=== PATIENT | male | born 1975 | race Caucasian/White ===

== ENCOUNTER 2020-06-22 10:17 | Outpatient (CLI) | payer BC, SELFPAY ==
--- NOTE | 2020-06-22 10:29 | EST_ITS ---
Patient Info Name: Los Bishop Age: 45 years : 1975 Gender: Male Ht: 71 in Wt: 290 lbs BSA: 2.62 m2 Exam Date: 06/22/2020 10:45 AM Exam Location: [facility] Pulmonary Patient Status: Outpatient Admit Date: 06/22/2020 Staff Ordering Physician: Julianna Peres MD Policy Writer Typist: Connor Bishop RDCS, RT Attending Provider: CARMEN JOHNSON DO Referring Physician: Larisa EDGE; Exercise Technologist: Gisel Leon RDCS Exercise Physician: Carmen Johnson DO Exam Type: CA stress echo Study Info Indications R00.2 - Palpitations Treadmill exercise stress echocardiogram is performed. Summary 1. 1. Inconclusive Jerad exercise stress test for ischemic ST changes by ECG criteria due to development of LBBB during exercise. 2. 2. Reduced functional capacity, achieving 8 METs of workload. 3. 3. Change of QRS complex to Left bundle branch block during exercise. 4. 4. Appropriate HR response to exercise. 5. 5. Appropriate HR recovery at 1 minute post exercise. 6. 6. Baseline hypertension. 7. 7. Inconclusive stress echocardiogram for ischemia by wall motion analysis due to suboptimal study and timing out during acquisition. But no obvious segmental wall motion abnormality in apical images. 8. 8. Patient informed of the above results. Stress Echo Findings Left Ventricle Suboptimal as parasternal images not obtained as timed out. Apical images did not reveal any obvious segmental wall motion abnormality. Left Ventricle Normal LV systolic function, no wall motion abnormality. Protocol: Jerad Stress ECG Details Stage: REST Duration (min): 4 min : 32 sec Speed (mph): 0.0 Grade (%): 0 HR (bpm): 70 SBP (mmHg): 154 DBP (mmHg): 69 METS: --- Stage: REST Duration (min): 18 min : 9 sec Speed (mph): 0.0 Grade (%): 0 HR (bpm): 82 SBP (mmHg): 154 DBP (mmHg): 69 METS: --- Stage: STAGE 1 Duration (min): 1 min : 0 sec Speed (mph): 1.7 Grade (%): 10 HR (bpm): 110 SBP (mmHg): 154 DBP (mmHg): 69 METS: --- Stage: STAGE 1 Duration (min): 2 min : 0 sec Speed (mph): 1.7 Grade (%): 10 HR (bpm): 118 SBP (mmHg): 154 DBP (mmHg): 69 METS: --- Stage: STAGE 1 Duration (min): 3 min : 0 sec Speed (mph): 1.7 Grade (%): 10 HR (bpm): 120 SBP (mmHg): 179 DBP (mmHg): 53 METS: --- Stage: STAGE 2 Duration (min): 1 min : 0 sec Speed (mph): 2.5 Grade (%): 12 HR (bpm): 135 SBP (mmHg): 179 DBP (mmHg): 53 METS: --- Stage: STAGE 2 Duration (min): 2 min : 0 sec Speed (mph): 2.5 Grade (%): 12 HR (bpm): 123 SBP (mmHg): 192 DBP (mmHg): 57 METS: --- Stage: STAGE 2 Duration (min): 3 min : 0 sec Speed (mph): 2.5 Grade (%): 12 HR (bpm): 143 SBP (mmHg): 192 DBP (mmHg): 57 METS: --- Stage: STAGE 3 Duration (min): 0 min : 42 sec Speed (mph): 0.0 Grade (%): 0 HR (bpm): 149 SBP (mmHg): 192 DBP (mmHg): 57 METS: --- Stage: RECOVERY Duration (min): 0 min :
--- NOTE | 2020-06-27 11:36 | WPDHOLTEREM ---
Holter/Event Monitor Holter/Event Monitor Date of procedure: 06/22/20 Procedure Type: 24 hour holter monitor Indications: Palpitations Conclusion: 1. 24 hour holter monitor on 06/22/20. 2. Underlying rhythm is sinus rhythm. HR range 45-148 bpm; average HR 72 bpm. 3. There are 4 premature supraventricular complexes and 1 supraventricular triplet. No supraventricular tachycardia. 4. There are 4 premature ventricular complexes. No ventricular tachycardia. 5. There is a change in QRS complex from narrow complex to LBBB morphology at HR of 146 bpm and it returned to narrow complex. 6. Patient reports symptoms of lightheadedness, cough, heart flutters which demonstrate sinus rhythm, HR range 82-145 bpm.
== END 2020-06-22 10:18 | disposition home or self-care (01) ==
LOC: ANHCARD 10:18
PROVIDERS: PCP Family Medicine; Visit Provider Family Medicine
DX: R00.2 Palpitations (principal); R55 Syncope and collapse; R94.39 Abnormal result of other cardiovascular function study
CPT/HCPCS: 93225; 93226; 93351

== ENCOUNTER 2020-08-04 08:35 | Outpatient (CLI) | payer BC, SELFPAY ==
--- NOTE | 2020-08-18 13:09 | WPDHOMESLEEP ---
Sleep Study - Home Unattended Date of Study: 08/04/20 Ordering Provider: Khanh Peres MD Interpreting Provider: Charo Shannon MD Home Sleep Study Type: Apnea Link Air Height: 1.8 m Weight: 133.81 kg Body Mass Index: 41.1 Neck Circumference (inches): 18.5 [place]: 11 Reason for Sleep Study palpitations, left bundle branch block possibly due to sleep apnea Sleep History Los Bishop is a 45-year-old man with a history of palpitations in 2019, with a workup including stress echo and Holter monitor showing a left bundle branch block with a concern for possible sleep apnea. He wakes up at night with a severely dry mouth. He was diagnosed with Chiari malformation in 1997. He has not had surgery. He frequently snores and occasionally it is loud enough so others complain about it. He occasionally awakens at night with heartburn, belching or coughing. He does not awaken from sleep feeling short of breath. He does not have trouble sleep with a cold, does not gasp for breath at night, does not have breathing problems at night reported to me by others. He does not sweat excessively at night. He does not notice his heart pounding or beating irregularly at night. He occasionally falls asleep during the day, never involuntarily and rarely while driving. He does not fall asleep while exerting physical effort. He does not have loss of muscle tone was strong emotion. He rarely has daytime difficulties due to excessive sleepiness. He does not feel paralyzed on waking or falling asleep. He occasionally has vivid dreamlike scenes upon awakening or falling asleep. He does not feel afraid to go to sleep. He occasionally has nightmares, occasionally remembers his dreams, occasionally has racing thoughts. He rarely feels sad or depressed. He occasionally has anxiety. He rarely has muscular tension. He occasionally notices parts of his body jerking. He does not kick at night, does not have crawling or aching feelings in his legs, does not have leg pain at night and does not have morning jaw pain. He does not grind his teeth during sleep. He rarely is bothered by pain during the day. He never is awakened by pain at night. He rarely wakes up feeling stiff in the morning with sore achy muscles or pain in the neck and spine. He has fatigue, memory problems and concentration difficulties. He has palpitations. On occasion he awakens feeling refreshed. He never has a morning headache. Normal bedtime is midnight falling asleep within a few minutes typically waking 2 or 3 times at night to urinate, take a drink due to extremely dry mouth. Within a few minutes he is able to return to sleep. He wakes in the morning at 6:30 a.m.. On the weekends he also goes to bed at midnight and wakes at 8:30 a.m.. He estimates 6-7 hours of sleep at night. He occasionally takes a nap. A short nap is not refreshing but a longer nap can be refreshing. He is usually drowsy in the morning for 1 hour or longer. Habits: Never smoked tobacco. Caffeine 2 cups a day. Alcohol 1 per day. No recreational drugs. [facility] Past Medical History Medical History (Updated 08/18/20 @ 13:20 by Charo Shannon MD) Chiari malformation Essential hypertension Gastro-esophageal reflux disease without esophagitis LBBB (left bundle branch block) Mixed hyperlipidemia Surgical History Surgical History (Updated 08/18/20 @ 13:17 by Charo Shannon MD) History of tonsillectomy 1982 History of umbilical hernia repair 1996 Social History Social History Smoking status: Never smoker Alcohol intake: current Medications Home Medications Medication Instructions Recorded Confirmed Type aspirin 81 mg tablet,delayed 81 mg PO DAILY 05/06/19 07/25/20 History release triamcinolone acetonide 0.1 % 1 applic TOPICAL TID #453.6 gm 10/13/19 07/25/20 Rx topical cream atenolol 50 mg tablet 25 mg PO DAILY #90 ta
[2020-08-18 13:23] VITALS: BMI 41.1
== END 2020-08-04 08:36 | disposition home or self-care (01) ==
LOC: ANHCSM 08:35
PROVIDERS: PCP Family Medicine; Visit Provider Family Medicine
DX: G47.33 Obstructive sleep apnea (adult) (pediatric) (principal)
CPT/HCPCS: 95806

== ENCOUNTER → 2020-09-20 01:57 | Outpatient (CLI) | payer BC, SELFPAY ==
[2020-09-20 17:07] LABS: SARS-CoV-2 RNA PCR Negative
== END ==
PROVIDERS: PCP Family Medicine; Visit Provider Internal Medicine Critical Care Medicine
DX: R68.89 Other general symptoms and signs (principal); Z20.822 Contact with and (suspected) exposure to COVID-19
CPT/HCPCS: C9803; U0003; U0005

== ENCOUNTER 2020-09-22 09:28 | Outpatient (CLI) | payer BC, SELFPAY ==
--- NOTE | 2020-10-09 13:25 | WPDSLEEPSTUD ---
Sleep Study Date of Study: 09/22/20 Ordering Provider: Khanh Peres MD Interpreting Physician: Charo Shannon MD Sleep Study Type: CPAP Titration Height: 1.8 m Weight: 131.542 kg Body Mass Index: 40.4 Neck Circumference (inches): 18 [place]: 7 Reason for Sleep Study Home sleep test on 08/04/2020 with severe obstructive sleep apnea AHI 45.4, desaturation to 82%, 61% obstructive events, 39% central and mixed events, here for CPAP titration. Sleep History Los Bishop is a 45-year-old man with a history of palpitations in 2019, with a workup including stress echo and Holter monitor showing a left bundle branch block with a concern for possible sleep apnea. He wakes up at night with a severely dry mouth. He was diagnosed with Chiari malformation in 1997. He has not had surgery. He frequently snores and occasionally it is loud enough so others complain about it. He occasionally awakens at night with heartburn, belching or coughing. He does not awaken from sleep feeling short of breath. He does not have trouble sleep with a cold, does not gasp for breath at night, does not have breathing problems at night reported to me by others. He does not sweat excessively at night. He does not notice his heart pounding or beating irregularly at night. He occasionally falls asleep during the day, never involuntarily and rarely while driving. He does not fall asleep while exerting physical effort. He does not have loss of muscle tone was strong emotion. He rarely has daytime difficulties due to excessive sleepiness. He does not feel paralyzed on waking or falling asleep. He occasionally has vivid dreamlike scenes upon awakening or falling asleep. He does not feel afraid to go to sleep. He occasionally has nightmares, occasionally remembers his dreams, occasionally has racing thoughts. He rarely feels sad or depressed. He occasionally has anxiety. He rarely has muscular tension. He occasionally notices parts of his body jerking. He does not kick at night, does not have crawling or aching feelings in his legs, does not have leg pain at night and does not have morning jaw pain. He does not grind his teeth during sleep. He rarely is bothered by pain during the day. He never is awakened by pain at night. He rarely wakes up feeling stiff in the morning with sore achy muscles or pain in the neck and spine. He has fatigue, memory problems and concentration difficulties. He has palpitations. On occasion he awakens feeling refreshed. He never has a morning headache. Normal bedtime is midnight falling asleep within a few minutes typically waking 2 or 3 times at night to urinate, take a drink due to extremely dry mouth. Within a few minutes he is able to return to sleep. He wakes in the morning at 6:30 a.m.. On the weekends he also goes to bed at midnight and wakes at 8:30 a.m.. He estimates 6-7 hours of sleep at night. He occasionally takes a nap. A short nap is not refreshing but a longer nap can be refreshing. He is usually drowsy in the morning for 1 hour or longer. Habits: Never smoked tobacco. Caffeine 2 cups a day. Alcohol 1 per day. No recreational drugs. [facility] Past Medical History Medical History Chiari malformation Essential hypertension Gastro-esophageal reflux disease without esophagitis LBBB (left bundle branch block) Mixed hyperlipidemia Surgical History Surgical History History of tonsillectomy 1982 History of umbilical hernia repair 1996 Social History Social History Alcohol intake: current Medications Home Medications Medication Instructions Recorded Confirmed Type aspirin 81 mg tablet,delayed 81 mg PO DAILY 05/06/19 07/25/20 History release triamcinolone acetonide 0.1 % 1 applic TOPICAL TID #453.6 gm 10/13/19 07/25/20 Rx top
[2020-10-09 13:55] VITALS: BMI 40.4
== END 2020-09-22 09:29 | disposition home or self-care (01) ==
LOC: ANHCSM 09:28
PROVIDERS: PCP Family Medicine; Visit Provider Family Medicine
DX: G47.33 Obstructive sleep apnea (adult) (pediatric) (principal)
CPT/HCPCS: 95811

== ENCOUNTER → 2020-12-30 06:36 | Outpatient (CLI) | payer BC, SELFPAY ==
[2020-12-30 16:46] LABS: SARS-CoV-2 RNA PCR Positive
== END ==
PROVIDERS: PCP Family Medicine; Visit Provider Physician Assistant Medical
DX: U07.1 COVID-19 (principal)
CPT/HCPCS: C9803; U0003; U0005

== ENCOUNTER 2021-01-04 12:45 | Outpatient (RCR) | payer BC, SELFPAY ==
[2021-01-04] MEDS: ACETAMINOPHEN 325 MG TABLET 650 MG PO (13:08)
[2021-01-04] MEDS: diphenhydrAMINE HCl CAP 25 MG CAPSULE PO (13:08)
[2021-01-04] MEDS: FAMOTIDINE 20 MG TABLET PO (13:08)
[2021-01-04 13:11] VITALS: BP 127/73; PULSE 91; RESP 16; TEMP 36.8; O2SAT 95
[2021-01-04 15:22] VITALS: BP 124/67
--- NOTE | 2021-01-04 15:30 | PC.NURSE ---
Patient educated on covid infusion, given fact sheet on casirivimab and imdevimab, and given covid discharge instruction and [facility] center discharge instructions with understanding stated.
== END 2021-01-04 15:58 | disposition home or self-care (01) ==
LOC: AMCINF 12:45
PROVIDERS: Visit Provider Internal Medicine Hematology & Oncology
DX: Z23 Encounter for immunization (principal); U07.1 COVID-19
CPT/HCPCS: A9270; J7050; M0243

== ENCOUNTER 2021-01-06 12:58 | Emergency (ER) | payer BC, SELFPAY ==
--- NOTE | ~2021-01-06 | XR_ITS ---
XR chest 1V portable DATE: 01/06/2021 13:25 INDICATION: Covid-positive. Shortness of breath, dry cough. Failure to improve. TECHNIQUE: Portable upright AP chest on 01/06/2021 at 1319 hours COMPARISON: None FINDINGS: There is diffuse patchy bilateral pulmonary infiltrates, involving particularly the mid and lower lung zones. Findings are consistent with bilateral pneumonia. Heart size is likely within normal range. No pleural effusion or pneumothorax. IMPRESSION: Patchy bilateral pulmonary infiltrates suggesting bilateral pneumonia Reviewed, dictated and finalized at location A. IMPRESSION: Patchy bilateral pulmonary infiltrates suggesting bilateral pneumon ia
[2021-01-06 13:03] VITALS: BP 127/78; PULSE 86; RESP 20; TEMP 36.6; O2SAT 92
[2021-01-06 13:45] VITALS: BP 130/76; PULSE 81; RESP 20; O2SAT 93
[2021-01-06 13:50] VITALS: BP 130/76; PULSE 80; RESP 20; O2SAT 93
--- NOTE | 2021-01-06 13:50 | ED.URI ---
HPI - URI/Sore Throat General Chief Complaint: Upper Respiratory Infection Stated Complaint: covid positive sob Time Seen by Provider: 01/06/21 13:39 History of Present Illness HPI Narrative: Diagnosed with COVID-19 on 12/30. He has continued cough, congestion, BUTTS, nausea, vomiting, and body aches. He received an infusion, which did not help. He is on Zofran, which provides mild relief of his nausea. Related Data Home Medications Medication Instructions Recorded Confirmed aspirin 81 mg tablet,delayed 81 mg PO DAILY 05/06/19 01/06/21 release Allergies Allergy/AdvReac Type Severity Reaction Status Date / Time atorvastatin AdvReac presyncope Verified 01/06/21 13:07 Review of Systems Review of Systems: All systems reviewed & are unremarkable except as noted in HPI and below Constitutional: Constitutional: Denies fever(s) ENT: Denies sore throat Cardiovascular: Cardiovascular: Denies chest pain Respiratory: Respiratory: Reports cough and Reports dyspnea Gastrointestinal: Gastrointestinal: Reports nausea Genitourinary: Genitourinary: Reports no additional male genitourinary complaints Musculoskeletal: Musculoskeletal: Reports back pain and Reports myalgias Neurologic: Denies numbness and Denies weakness PMF Past Medical History Medical History Chiari malformation Essential hypertension Gastro-esophageal reflux disease without esophagitis LBBB (left bundle branch block) Mixed hyperlipidemia Surgical History Surgical History History of tonsillectomy 1982 History of umbilical hernia repair 1996 Social History Social History Smoking status: Never smoker Alcohol intake: current Gender identity (if verbalized by the patient): Male Spiritual care concerns: No Exam Const: General: healthy appearing, no acute distress and alert Orientation/consciousness: patient oriented x3 HENMT: Head: normal to inspection Resp: Effort & Inspection: normal respiratory effort Auscultation: clear to auscultation bilaterally, no rales, no rhonchi and no wheezes Cardio: Jugular venous distension: no JVD Rate: regular rate Rhythm: regular rhythm Heart sounds: no murmurs GI: Inspection: non-distended GI Palp: Yes Soft to palpation and No Tenderness to palpation present (GI) Skin: General skin exam: normal color Neuro: General: patient oriented x3 and moves all extremities Speech: normal speech Extrem: General: normal to inspection and no edema Psych: Appearance: well kempt Affect: normal affect Course Vital Signs Vital signs: Vital Signs Temperature 36.6 C 01/06/21 13:03 Pulse Rate 86 01/06/21 13:03 Respiratory Rate 20 01/06/21 13:03 Blood Pressure 127/78 01/06/21 13:03 Pulse Oximetry 92 01/06/21 13:03 Temperature 36.6 C 01/06/21 13:03 Pulse Rate 80 01/06/21 13:50 Respiratory Rate 20 01/06/21 13:50 Blood Pressure 130/76 01/06/21 13:50 Pulse Oximetry 93 01/06/21 13:50 MDM - URI/Sore Throat MDM Narrative Medical decision making narrative: Normal vitals. Mild COVID pneumonia on x-ray. Medical Records Attestation: I reviewed the patient's medical records. Imaging Data Radiologist's impression: ITS Impressions Chest X-Ray 01/06/21 13:28 IMPRESSION: Patchy bilateral pulmonary infiltrates suggesting bilateral pneumonia Discharge Plan Discharge Clinical Impression: Pneumonia due to COVID-19 virus Patient Disposition: Home, Self-Care Condition: Stable Instructions: COVID-19 (Coronavirus Disease 2019) (ED) Prescriptions: New dexamethasone 6 mg tablet 6 mg PO DAILY Qty: 10 RF: 0 metoclopramide HCl [Reglan] 10 mg tablet 10 mg PO Q6H PRN (Reason: nausea and vomiting) Qty: 10 RF: 0 albuterol sulfate 90 mcg/actuation HFA aerosol inhal
== END 2021-01-06 13:58 | disposition home or self-care (01) ==
PROVIDERS: Emergency Provider Emergency Medicine
DX: U07.1 COVID-19 (principal); J12.82 Pneumonia due to coronavirus disease 2019; I10 Essential (primary) hypertension; K21.9 Gastro-esophageal reflux disease without esophagitis; E78.2 Mixed hyperlipidemia
CPT/HCPCS: 71045; 99283

== ENCOUNTER 2022-09-03 01:02 | Day surgery (SDC) | payer BC, SELFPAY ==
[2022-08-23 13:30] VITALS: BMI 39.4
[2022-09-03 09:18] VITALS: BP 109/80; PULSE 73; RESP 18; TEMP 36.2; O2SAT 98
[2022-09-03 09:35] LABS: Glucose Point of Care 103 mg/dl (65-105)
[2022-09-03] MEDS: LACTATED RINGERS 1,000 ML 150 ML IV CONT (09:35)
--- NOTE | 2022-09-03 09:51 | WPDANESEPPF ---
Anes - Initial Pre Proc Eval Procedure: Operation Date: 09/03/22 10:30 Proposed Procedures p Screening Colonoscopy - Davin Dale MD Date/Time: 09/03/22 09:51 Surgeon: Davin Dale MD Pre Op Diagnosis: neoplasm screening Patient Data Age: 47 Gender: M Height: 1.83 m Weight: 131.6 kg Last Vital Signs Temp 97.2 F L 09/03/22 09:18 Pulse 73 09/03/22 09:18 Resp 18 09/03/22 09:18 BP 109/80 09/03/22 09:18 Pulse Ox 98 09/03/22 09:18 O2 Del Method Room Air 09/03/22 09:18 Allergies Allergy/AdvReac Type Severity Reaction Status Date / Time No Known Allergies Allergy Unverified 09/03/22 09:17 Home Medications Medication Instructions Recorded Confirmed Type aspirin 81 mg tablet,delayed 81 mg PO DAILY 05/06/19 08/23/22 History release atenolol 50 mg tablet See Rx Instructions .Route 07/09/22 09/03/22 Rx .COMPLEX #45 tabs metformin 500 mg tablet,extended 1,000 mg PO BID #360 tabs 08/30/22 09/03/22 Rx release 24 hr Laboratory Tests 09/03/22 09:31 POC Capillary Glucose 103 mg/dl mg/dl (65-105) Patient hx anesthesia problems: none Family hx anesthesia problems: none Results Review: All pre-operative results and documents have been reviewed as part of the pre-operative evaluation. [facility] Past Medical History Medical History Chiari malformation COVID-19 Essential hypertension Gastro-esophageal reflux disease without esophagitis LBBB (left bundle branch block) Mixed hyperlipidemia Pneumonia due to COVID-19 virus Surgical History Surgical History History of tonsillectomy 1981 History of umbilical hernia repair 1996 Social History Social History (Updated 07/09/22 @ 13:12 by Ruperto Dao MA) Smoking status: Never smoker Alcohol intake: current Drinks per week: 7 Substance use: never Substance use type: does not use Lack of Transportation: No Lack of Food: Never True Current Housing: I Have Housing Concerned About Future Housing: No Difficulty Paying Gas/Electric Bills: No Difficulty Paying for Meds: No Currently Unemployed: No Education: Master's Degree or Higher Difficulty w/ Childcare or Family Care: No Living arrangements: with family Gender identity (if verbalized by the patient): Male Spiritual care concerns: No Anes - Eval Final PreProcedure Day of Procedure 09/03/22 09:51 Patient weight: morbidly obese Heart: regular rate and rhythm Lungs: clear to auscultation Airway: Mallampati scale class III Neurological: alert and oriented Last oral intake: >/= 8 hours ASA classification: III Emergent: no Anesthetic plan: proceed Anesthesia type and monitoring: general GIVS and standard monitoring Results Review: All pre-operative results and documents have been reviewed as part of the pre-operative evaluation. Informed Consent: The patient's anesthetic plan and its attendant risks and benefits were discussed with the patient/family/POA. Questions were solicited and answers provided to the satisfaction of the patient/family/POA.
--- NOTE | 2022-09-03 09:59 | PM.HPGS ---
History of Present Illness History of Present Illness Consent: Risks, benefits, and alternatives have been discussed and questions answered. Patient agrees to proceed with procedure. Chief complaint: neoplasm screening Narrative: Los Bishop is a 47 year old male here for first screening colonoscopy Review of Systems Constitutional: Constitutional: Denies headache(s) and Denies weakness Eyes: Eyes: Denies blurry vision ENT: Reports Normal hearing present, Denies headache(s) and Denies neck pain Cardiovascular: Cardiovascular: Denies chest pain and Denies dyspnea Respiratory: Respiratory: Denies dyspnea Gastrointestinal: Gastrointestinal: Reports no additional gastrointestinal complaints Genitourinary: Genitourinary: Denies dysuria Musculoskeletal: Musculoskeletal: Denies neck pain Integumentary/Breasts: Skin/Breast: Denies dry skin Neurologic: Reports Normal hearing present, Denies headache(s) and Denies weakness Psychiatric: Psychiatric: Denies anxiety Endocrine: Endocrine: Denies change in body appearance Hematologic/Lymphatic: Hematologic/Lymphatic: Denies easy bleeding Allergic/Immunologic: Allergic/Immunologic: Denies urticaria PMF Past Medical History Medical History (Updated 09/03/22 @ 10:00 by Davin Dale MD) Chiari malformation Colon cancer screening COVID-19 Essential hypertension Gastro-esophageal reflux disease without esophagitis LBBB (left bundle branch block) Mixed hyperlipidemia Pneumonia due to COVID-19 virus Surgical History Surgical History History of tonsillectomy 1982 History of umbilical hernia repair 1996 Social History Social History (Updated 07/09/22 @ 13:12 by Ruperto Dao MA) Smoking status: Never smoker Alcohol intake: current Drinks per week: 7 Substance use: never Substance use type: does not use Lack of Transportation: No Lack of Food: Never True Current Housing: I Have Housing Concerned About Future Housing: No Difficulty Paying Gas/Electric Bills: No Difficulty Paying for Meds: No Currently Unemployed: No Education: Master's Degree or Higher Difficulty w/ Childcare or Family Care: No Living arrangements: with family Gender identity (if verbalized by the patient): Male Spiritual care concerns: No Meds Home Medications and Allergies Home Medications Medication Instructions Recorded Confirmed Type aspirin 81 mg tablet,delayed 81 mg PO DAILY 05/06/19 08/23/22 History release atenolol 50 mg tablet See Rx Instructions .Route 07/09/22 09/03/22 Rx .COMPLEX #45 tabs metformin 500 mg tablet,extended 1,000 mg PO BID #360 tabs 08/30/22 09/03/22 Rx release 24 hr Allergies Allergy/AdvReac Type Severity Reaction Status Date / Time No Known Allergies Allergy Unverified 09/03/22 09:17 Vital Signs Vital Signs - 24 hr 09/03/22 09:18 Temperature 97.2 F L Pulse Rate 73 Respiratory Rate 18 Blood Pressure 109/80 Pulse Oximetry 98 Oxygen Delivery Room Air Exam Const: General: comfortable and no acute distress HENMT: Face/Nose/Sinus: Normal nares present Eyes: General: appearance normal, both eyes and all related structures Neck: Neck: no JVD Resp: Auscultation: clear to auscultation bilaterally Cardio: Rate: regular rate Rhythm: regular rhythm GI: Inspection: non-distended GI Palp: Yes Soft to palpation Skin: General skin exam: normal color Neuro: General: gait normal Speech: normal speech Extrem: General: normal to inspection Psych: Mental Status: mental status grossly normal Assessment and Plan Assessment and plan (1) Colon cancer screening: Code(s): Z12.11 - Encounter for screening for malignant neoplasm of colon Status: Acute Assessment and Plan: colonoscopy
[2022-09-03 10:17] VITALS: BP 109/62; PULSE 64; RESP 19; O2SAT 95
[2022-09-03 10:27] VITALS: BP 116/73; PULSE 63; RESP 22; O2SAT 96
--- NOTE | 2022-09-03 10:30 | SUR.PHASEII ---
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
[2022-09-03 10:37] VITALS: BP 120/68; PULSE 57; RESP 19; O2SAT 96
== END 2022-09-03 11:57 | disposition home or self-care (01) ==
PROVIDERS: PCP Family Medicine; Visit Provider Internal Medicine Gastroenterology
PROC: 0DJD8ZZ Inspection of Lower Intestinal Tract, Via Natural or Artificial Opening Endoscopic (ICD-10-PCS; CPT 45378; principal; 2022-09-03 10:30)
DX: Z12.11 Encounter for screening for malignant neoplasm of colon (principal); D12.3 Benign neoplasm of transverse colon; K57.30 Diverticulosis of large intestine without perforation or abscess without bleeding; K64.8 Other hemorrhoids; I10 Essential (primary) hypertension; I44.7 Left bundle-branch block, unspecified; Z79.84 Long term (current) use of oral hypoglycemic drugs; Z79.82 Long term (current) use of aspirin; E66.01 Morbid (severe) obesity due to excess calories; Z68.39 Body mass index [BMI] 39.0-39.9, adult
CPT/HCPCS: 45385; 82948; 88305; J2704; J7120

== ENCOUNTER 2024-04-09 15:48 | Emergency (ER) | payer BC, SELFPAY ==
[2024-04-09 16:08] VITALS: BP 158/86; PULSE 69; RESP 18; TEMP 36.5; O2SAT 99
--- NOTE | 2024-04-09 16:43 | ED_ITS ---
HPI - Skin/Abscess/Foreign Bdy General Chief complaint: Skin/Abscess/Foreign Body Stated complaint: Foot Blister Source: patient Mode of arrival: ambulatory Limitations: no limitations History of Present Illness HPI narrative: 48-year-old male with history of prediabetes and eczema presented for complaint of blisters to the left foot. First noticed a small blister about a month ago and since then he has had more blisters appear and enlarged. Endorses 2 fluid- filled blisters to the inner left foot, 3rd toe has pus-filled blister with mild swelling extending into the foot, and the 5th toe has a dried blister. He was advised by his PCP the blisters are related to eczema and has been applying triamcinolone cream, clobetasol cream and Aquaphor. Related Data Home Medications Medication Instructions Recorded Confirmed aspirin 81 mg tablet,delayed 81 mg PO DAILY 05/06/19 04/09/24 release Allergies Allergy/AdvReac Type Severity Reaction Status Date / Time No Known Allergies Allergy Verified 04/09/24 16:35 Review of Systems Review of Systems: CONSTITUTIONAL: Denies body aches, fever, chills, or sweats. CARDIOVASCULAR: Denies chest pain, palpitations, or edema. RESPIRATORY: Denies cough or dyspnea. GASTROINTESTINAL: Denies abdominal pain, nausea, vomiting, or diarrhea. SKIN: Per HPI MUSCULOSKELETAL: Denies back pain, joint pain, or myalgia. NEUROLOGIC: Denies headache, numbness, tingling, or weakness. [facility] Past Medical History Medical History Chiari malformation COVID-19 Left flank pain Pneumonia due to COVID-19 virus Surgical History Surgical History History of tonsillectomy 1982 History of umbilical hernia repair 1996 Family History Family History Father Malignant neoplasm of prostate Grandparent Malignant neoplasm of prostate Sibling Epilepsy Social History Social History Smoking status: Never smoker Alcohol intake: current Drinks per week: 4 Substance use: never Substance use type: does not use Do You Feel Safe in your Home?: Yes Lack of Transportation: No Lack of Food: Never True Current Housing: I Have Housing Concerned About Future Housing: No Difficulty Paying Gas/Electric Bills: No Difficulty Paying for Meds: No Currently Unemployed: No Education: Master's Degree or Higher Difficulty w/ Childcare or Family Care: No Living arrangements: with family Gender identity (if verbalized by the patient): Male Spiritual care concerns: No Comments At time of signature, I have reviewed and agree with nursing past medical, surgical, social and family history unless otherwise noted. Please see nursing chart for further information. There is no relevant family history pertinent to the presenting complaint Exam Narrative: GENERAL: Well-appearing ENT: Mucous membranes moist. CHEST: Clear to auscultation. HEART: Regular rate and rhythm. SKIN: Warm, dry. Scattered patches of erythematous dry skin c/w eczema to BUEs and hands. Left medial foot with fluid filled blister approx 2.5cm and a dried crusted ruptured blister. Plantar surface of 1st MTP with fluid filled blister approx 2.5cm Left 3rd toe with purulent fluid blister c/w paronychia, mild swelling and erythema extending to the mid dorsal foot Left 5th toe with dried and crusted ruptured blister. NEURO: Alert and oriented x3. Course Course Emergency Course: Patient is aware of diagnosis, understands and agrees to treatment plan. A nticipatory guidance given. Patient agrees to follow-up as directed and is aware of reasons to seek care at the emergency department. Portions of this record may have been created with voice recognition software Level of Care: Express Care Visit Vital Signs Vital signs: Vital Signs Temperature 97.7 F 04/09/24 16:08 Pulse Rate 69 04/09/24 16:08 Respiratory Rate 18 04/09/24 16:08 Blood Pressure 158/86 H 04/09/24 16:08 Pulse Oximetry 99 04/09/24 16:08 Oxygen Delivery Room Air 04/09/24 16:08 Temperature 97.7 F 04/09/24 16:08 Pulse Rate 69 04/09/24 16:08 Respiratory Rate 18 04/09/24 16:08 Blood Pressure 158/86 H 04/09/24 16:08 Pulse Oximetry 99 04/09/24 16:08 Oxygen Delivery Room Air 04/09/24 16:08 Reviewed Procedures Other Procedure Procedure 1: Other Procedure: Tolerated drainage of paronychia left 3rd toe, and aspiration of medial foot blisters. The procedure and its alternatives were reviewed with patient. Risks were reviewed with patient including infection and damage to nearby structures. Patient provided verbal informed consent. The patient was positioned appropriately. Single straight puncture made to center of most fluctuant areas of blisters using #18g needles. Fluid easily drained from medial foot blisters. Moderate amount of thick purulent discharge expelled with manual pressure of 3rd toe. Pt tolerated the procedure well, no complications. Dressing applied per RN. MDM - Skin/Abscess/Foreign Bdy MDM Narrative Medical decision making narrative: Discussed physical exam findings. Tolerated drainage of paronychia left 3rd toe, and aspiration of medial foot blisters. Dressings applied. Advised supportive measures and signs/symptoms to go to the ER. Pt is appropriate for outpt treatment and f/u. Differential Diagnosis Differential diagnosis: Likely abscess of skin or subcutaneous tissue, urticaria, herpes zoster, cellulitis and contact dermatitis Discharge Plan Discharge Clinical Impression: Paronychia of fifth toe of left foot, Blisters of multiple sites Patient Disposition: Home, Self-Care Condition: Stable Instructions: Antibiotic Form, Paronychia (ED), Blister (ED) Additional Instructions: Keep the areas clean and dry - cleanse with warm water and mild soap and allow to fully dry. Ok to apply neosporin to the sites Keep it open to air (no bandages unless the sites or draining) Take the antibiotics as directed Watch for worsening symptoms including pain, redness, swelling, streaking, pus/drainage, fever. Go to the ER with any of these symptoms or concerns. Follow up with primary care provider in 1 week as needed. Recommend follow up with dermatology and/or podiatry. Prescriptions: New methylprednisolone [Medrol ([place])] 4 mg tablets,dose pack See Rx Instructions .ROUTE .COMPLEX Qty: 21 0RF Rx Instructions: orally per package directions amoxicillin-pot clavulanate 875-125 mg tablet 1 tablet PO Q12H 7 Days Qty: 14 0RF No Action metformin 500 mg tablet extended release 24 hr 500 mg PO TID Qty: 270 3RF atorvastatin 20 mg tablet 20 mg PO DAILY Qty: 90 3RF clobetasol 0.05 % cream 1 applic TOPICAL BID 14 Days Qty: 60 6RF triamcinolone acetonide 0.1 % cream 1 applic topical TID Qty: 453.6 0RF aspirin 81 mg tablet,delayed release (DR/EC) 81 mg PO DAILY atenolol 50 mg tablet See Rx Instructions .ROUTE .COMPLEX Qty: 45 1RF Dose Instruction: Take 1/2 tablet by mouth daily. Rx Instructions: Take 1/2 tablet by mouth daily. Follow-up/Referrals: Julianna Peres MD [Primary Care Provider] -
== END 2024-04-09 17:44 | disposition home or self-care (01) ==
PROVIDERS: Emergency Provider Nurse Practitioner Family; PCP Family Medicine
DX: L03.032 Cellulitis of left toe (principal); Z79.82 Long term (current) use of aspirin
CPT/HCPCS: 10060; 99213; G0463